=== PATIENT | male | born 1980 | race Hispanic/Latino ===

== ENCOUNTER 2021-04-17 12:37 | Inpatient (IN) | payer OTHER ==
[~2021-04-17] VITALS: Ht 177.8 cm; Wt 91.2 kg
[2021-04-17 12:51] VITALS: BP 148/93
[2021-04-17] MEDS ORDERED: 0.9%NACL 1000ML 1,000 ML IV ONE (13:00)
[2021-04-17 13:18] LABS: BASOPHILS % (AUTO) 0.6 % (0.0-5.0); EOSINOPHILS % (AUTO) 0.1 % (0.0-8.0); HEMATOCRIT 46.8 % (42-54); LYMPHOCYTES % (AUTO) 16.5 % (21.0-51.0); MEAN CORPUSCULAR HGB CONC 33.1 g/dL (32.0-36.0); MEAN CORPUSCULAR VOLUME 84.6 fL (79-99); MONOCYTES % (AUTO) 9.5 % (3.0-13.0); NEUTROPHILS % (AUTO) 72.7 % (40.0-77.0); PLATELET COUNT (AUTO) 197 K/uL (130-400); RED BLOOD CELL COUNT(AUTO) 5.53 MIL/uL (4.50-6.20); RED CELL DISTRIBUTION WIDTH 14.1 % (11.0-15.5); WHITE BLOOD COUNT (AUTO) 6.7 K/uL (4.8-10.8)
[2021-04-17 13:53] VITALS: BP 132/78
[2021-04-17 14:00] LABS: APPEARANCE,URINE Clear (CLEAR); BILIRUBIN,URINE Negative (NEGATIVE); COLOR,URINE Yellow (YELLOW); GLUCOSE, URINE (UA) >=1000 mg/dL (NEGATIVE); KETONES,URINE >=160 mg/dL (NEGATIVE); LEUKOCYTE ESTERASE ,URINE Negative (NEGATIVE); NITRATE,URINE Negative (NEGATIVE); OCCULT BLOOD,URINE Small (NEGATIVE); PH,URINE 5.5 (5.0-8.0); PROTEIN,URINE POS 1+ mg/dL (NEGATIVE); UROBILINOGEN,URINE 0.2 mg/dL (0.2-1.0)
[2021-04-17 14:17] LABS: BACTERIA,URINE Rare /HPF (None Seen); MUCUS,URINE Rare LPF (None Seen); RBC,URINE 0-1 /HPF (0-1); SQUAMOUS EPITHELIAL CELL,UR Rare /HPF (0-2); WBC,URINE 0-1 /HPF (0-1)
[2021-04-17] MEDS ORDERED: INSULIN HUMULIN R 100 UNIT/ML 3ML IV ONE (14:30)
[2021-04-17] MEDS: 0.9%NACL 1000ML 1,000 ML IV SCH ×4 (14:30→22:30)
[2021-04-17 14:47] LABS: ALBUMIN 3.7 g/dL (3.5-5.0); BILIRUBIN,TOTAL 0.4 mg/dL (0.2-1.0); CREATININE 1.4 mg/dL (0.5-1.5); POTASSIUM 3.8 mmol/L (3.5-5.1); THYROID STIMULATING HORMONE 1.47 uIU/mL (0.36-3.74); TOTAL PROTEIN, SERUM 7.2 g/dL (6.0-8.3)
[2021-04-17 15:17] LABS: ABG BASE EXCESS -21.3 mmol/L (-2.0-3.0); ABG HCO3 5.5 mmol/L (21.0-28.0); ABG OXYGEN SATURATION 97.1 % (95.0-99.0); ABG PCO2 17 mmHg (35-48)
[2021-04-17] MEDS ORDERED: SODIUM BICARB 50MEQ 50ML VIAL IV STA (15:25)
[2021-04-17] MEDS ORDERED: SODIUM BICARB 50MEQ 50ML VIAL 50 ML ONE (15:40)
[2021-04-17] MEDS ORDERED: INSULIN REGULAR, HUMAN 3ML 100 UNIT in 0.9%NACL 100ML 99 ML IV PRN ×2 (17:00)
[2021-04-17] MEDS ORDERED: DEXTROSE 5 %-0.45 % NACL 1,000 ML IV PRN (17:00)
[2021-04-17] MEDS ORDERED: 0.9%NACL 1000ML 1,000 ML IV SCH (17:00)
[2021-04-17 17:46] LABS: AMPHET/METH SCREEN,URINE NEGATIVE (NEGATIVE); BARBITURATE SCREEN, URINE NEGATIVE (NEGATIVE); BENZODIAZEPINES SCREEN,URINE NEGATIVE (NEGATIVE); CANNABINOID SCREEN,URINE NEGATIVE (NEGATIVE); COCAINE SCREEN,URINE NEGATIVE (NEGATIVE); OPIATE SCREEN,URINE NEGATIVE (NEGATIVE); PHENCYCLIDINE SCREEN,URINE NEGATIVE (NEGATIVE)
[2021-04-17 18:07] LABS: CREATININE 1.3 mg/dL (0.5-1.5); POTASSIUM 3.2 mmol/L (3.5-5.1)
[2021-04-17] MEDS: CEFTRIAXONE 2GM VIAL IVP SCH (18:11)
[2021-04-17] MEDS: POTASSIUM CHLORIDE 10MEQ/100ML 100 ML IV PRN ×2 (18:15→20:14)
[2021-04-17 18:22] LABS: HEMOGLOBIN A1C 11.8 % (4.0-6.0)
[2021-04-17] MEDS ORDERED: INSULIN HUMULIN R 100 UNIT/ML 3ML ONE (18:23)
[2021-04-17 19:54] VITALS: BP 129/70
[2021-04-17] MEDS ORDERED: KCL 20 MEQ ERTAB PO ONE (22:00)
[2021-04-17 23:57] VITALS: BP 111/78
[2021-04-18] VITALS (13 sets, daily range): BP systolic 92–118; BP diastolic 54–80
[2021-04-18 02:01] LABS: CREATININE 0.4 mg/dL (0.5-1.5); GLOMERULAR FILTR. RATE CALC 253 mL/min (>60); GLUCOSE,RANDOM 134 mg/dL (70-105); SODIUM SERUM 150 mmol/L (136-145); UREA NITROGEN, BLOOD 6 mg/dL (7-18)
[2021-04-18 02:04] LABS: CARBON DIOXIDE 7 mmol/L (21-32); CHLORIDE 123 mmol/L (101-111); POTASSIUM 1.4 mmol/L (3.5-5.1)
[2021-04-18] MEDS: 0.9%NACL 1000ML 1,000 ML IV SCH ×7 (02:08→21:39)
[2021-04-18 02:34] LABS: ABG BASE EXCESS -16.3 mmol/L (-2.0-3.0); ABG HCO3 8.8 mmol/L (21.0-28.0); ABG OXYGEN SATURATION 96.3 % (95.0-99.0); ABG PCO2 21 mmHg (35-48)
[2021-04-18] MEDS ORDERED: POTASSIUM CHLORIDE 10MEQ/100ML 100 ML IV ONE (02:53)
[2021-04-18 03:08] LABS: CREATININE 1.1 mg/dL (0.5-1.5); MAGNESIUM 2.4 mg/dL (1.80-2.40); POTASSIUM 3.1 mmol/L (3.5-5.1)
[2021-04-18] MEDS ORDERED: CALCIUM GLUC 1GM VIAL 1 GM in 0.9%NACL 100ML 100 ML IV SCH (03:30)
[2021-04-18] MEDS ORDERED: SODIUM BICARB 8.4% 50ML SYRINGE IVP SCH (03:30)
[2021-04-18] MEDS ORDERED: SODIUM BICARB 50MEQ 50ML VIAL 50 ML ONE (03:50)
[2021-04-18] MEDS ORDERED: CALCIUM GLUC 1GM VIAL IV ONE (03:51)
[2021-04-18] MEDS ORDERED: KCL 20 MEQ ERTAB PO ONE ×3 (05:00→17:30)
[2021-04-18 07:13] LABS: CREATININE 1.1 mg/dL (0.5-1.5)
[2021-04-18 07:28] LABS: POTASSIUM 2.8 mmol/L (3.5-5.1)
[2021-04-18 08:54] LABS: POTASSIUM 3.1 mmol/L (3.5-5.1)
[2021-04-18] MEDS ORDERED: INSULIN GLARGINE 100 UNITS/ML 10 ML VIAL SQ ONE (11:00)
[2021-04-18] MEDS: INSULIN HUMULIN R 100 UNIT/ML 3ML SQ SCH ×5 (11:21→21:23)
[2021-04-18 13:37] LABS: CREATININE 1.1 mg/dL (0.5-1.5); POTASSIUM 3.2 mmol/L (3.5-5.1)
[2021-04-18 16:59] LABS: POTASSIUM 2.9 mmol/L (3.5-5.1)
[2021-04-18] MEDS: CEFTRIAXONE 2GM VIAL IVP SCH (18:15)
[2021-04-18] MEDS ORDERED: NS-20 MEQ KCL 1000ML 1,000 ML IV SCH (18:30)
[2021-04-18] MEDS: POTASSIUM CHLORIDE 40MEQ/20ML 40 MEQ in 0.9%NACL 1000ML 1,000 ML IV SCH (19:50)
[2021-04-18 21:16] LABS: CREATININE 0.9 mg/dL (0.5-1.5); POTASSIUM 3.2 mmol/L (3.5-5.1)
[2021-04-18] MEDS: INSULIN GLARGINE 100 UNITS/ML 10 ML VIAL SQ SCH (21:23)
[2021-04-19] VITALS (9 sets, daily range): BP systolic 100–115; BP diastolic 59–80
[2021-04-19 03:15] LABS: CREATININE 0.8 mg/dL (0.5-1.5)
[2021-04-19 03:17] LABS: POTASSIUM 2.6 mmol/L (3.5-5.1)
[2021-04-19] MEDS: POTASSIUM CHLORIDE 10MEQ/100ML 100 ML IV PRN ×2 (03:46→09:18)
[2021-04-19] MEDS: POTASSIUM CHLORIDE 40MEQ/20ML 40 MEQ in 0.9%NACL 1000ML 1,000 ML IV SCH ×2 (06:20→12:55)
[2021-04-19] MEDS: INSULIN HUMULIN R 100 UNIT/ML 3ML SQ SCH ×5 (07:29→16:21)
[2021-04-19] MEDS: INSULIN GLARGINE 100 UNITS/ML 10 ML VIAL SQ SCH ×2 (07:30→20:11)
[2021-04-19] MEDS ORDERED: KCL 20 MEQ ERTAB PO SCH (08:00)
[2021-04-19] MEDS ORDERED: LIDOCAINE HCL-MPF 1% 2ML VIAL ONE (09:15)
[2021-04-19 09:24] LABS: CREATININE 0.9 mg/dL (0.5-1.5); POTASSIUM 4.1 mmol/L (3.5-5.1)
[2021-04-19] MEDS ORDERED: METF-444 PO (10:18)
[2021-04-19] MEDS ORDERED: ATOR10TA69 PO (10:18)
[2021-04-19 12:26] LABS: POTASSIUM 3.2 mmol/L (3.5-5.1)
[2021-04-19] MEDS ORDERED: LACTULOSE 20 GM/30 ML UDCUP PO PRN (13:30)
[2021-04-19] MEDS: INSULIN LISPRO 100 UNIT/ML 3ML SQ SCH ×2 (16:22→20:16)
[2021-04-20 03:57] VITALS: BP 114/78
[2021-04-20] MEDS: POTASSIUM CHLORIDE 40MEQ/20ML 40 MEQ in 0.9%NACL 1000ML 1,000 ML IV SCH (04:19)
[2021-04-20] MEDS: INSULIN LISPRO 100 UNIT/ML 3ML SQ SCH ×3 (05:54→16:42)
[2021-04-20] MEDS: INSULIN GLARGINE 100 UNITS/ML 10 ML VIAL SQ SCH (05:54)
[2021-04-20] MEDS: INSULIN HUMULIN R 100 UNIT/ML 3ML SQ SCH ×3 (05:57→16:43)
[2021-04-20 06:12] LABS: BASOPHILS % (AUTO) 0.2 % (0.0-5.0); EOSINOPHILS % (AUTO) 1.3 % (0.0-8.0); LYMPHOCYTES % (AUTO) 27.6 % (21.0-51.0); MEAN CORPUSCULAR HGB CONC 34.3 g/dL (32.0-36.0); MEAN CORPUSCULAR VOLUME 81.6 fL (79-99); MONOCYTES % (AUTO) 11.7 % (3.0-13.0); PLATELET COUNT (AUTO) 146 K/uL (130-400); RED CELL DISTRIBUTION WIDTH 14.2 % (11.0-15.5); WHITE BLOOD COUNT (AUTO) 4.8 K/uL (4.8-10.8)
[2021-04-20 06:33] LABS: CREATININE 0.8 mg/dL (0.5-1.5)
[2021-04-20 06:49] LABS: POTASSIUM 2.8 mmol/L (3.5-5.1)
[2021-04-20] MEDS ORDERED: POTASSIUM CHLORIDE 20 MEQ/100 ML BAG IV SCH (07:00)
[2021-04-20] MEDS ORDERED: POTASSIUM CHLORIDE 20MEQ/100ML 100 ML IV PRN ×2 (07:00→07:44)
[2021-04-20] MEDS ORDERED: KCL 20 MEQ ERTAB PO PRN (07:00)
[2021-04-20] MEDS ORDERED: POTASSIUM CHLORIDE 10% ELIXIR 20 MEQ/15 ML UDCUP PO PRN (07:00)
[2021-04-20] MEDS ORDERED: KCL 20 MEQ ERTAB PO ONE (07:11)
[2021-04-20] MEDS ORDERED: POTASSIUM CHLORIDE 20MEQ/100ML 100 ML IV ONE (07:11)
[2021-04-20 07:37] VITALS: BP 119/72
[2021-04-20] MEDS ORDERED: KCL 20 MEQ ERTAB PO SCH (07:45)
[2021-04-20 11:32] VITALS: BP 112/73
[2021-04-20 13:14] LABS: CREATININE 0.9 mg/dL (0.5-1.5); POTASSIUM 3.3 mmol/L (3.5-5.1)
[2021-04-20 16:16] VITALS: BP 104/70
[2021-04-20] MEDS ORDERED: POTA-79 PO (16:46)
== END 2021-04-20 17:45 | disposition home or self-care (01) | DRG 638 ==
LOC: EDH 12:37 → EDHIP 12:38 → 4CH 04-19 09:46
PROVIDERS: ADMIT Internal Medicine; ATTEND Internal Medicine
DX: E11.10 Type 2 diabetes mellitus with ketoacidosis without coma (principal); N17.9 Acute kidney failure, unspecified; E66.9 Obesity, unspecified; E87.6 Hypokalemia; K21.9 Gastro-esophageal reflux disease without esophagitis; N18.2 Chronic kidney disease, stage 2 (mild); E11.22 Type 2 diabetes mellitus with diabetic chronic kidney disease; I12.9 Hypertensive chronic kidney disease with stage 1 through stage 4 chronic kidney disease, or unspecified chronic kidney disease; M25.50 Pain in unspecified joint; E86.0 Dehydration; R63.0 Anorexia; R74.8 Abnormal levels of other serum enzymes; Z20.822 Contact with and (suspected) exposure to COVID-19; Z68.34 Body mass index [BMI] 34.0-34.9, adult; Z83.3 Family history of diabetes mellitus; Z79.84 Long term (current) use of oral hypoglycemic drugs
CPT/HCPCS: 36415; 36600; 70450; 71045; 74018; 80048; 80053; 80305; 81001; 82010; 82040; 82803; 82948; 83036; 83605; 83690; 83735; 84145; 84443; 85025; 87635; 87804; G0378; J0610; J0696; J1815; J3480; J3490; J7030; J7042